=== PATIENT | female | born 1945 | race Caucasian/White ===

== ENCOUNTER → 2016-11-05 09:01 | Day surgery (SDC) | payer MEDICARE, BC ==
--- NOTE | 2016-10-31 09:46 | HP ---
PREOPERATIVE HISTORY AND PHYSICAL: DATE OF SURGERY/ADMISSION: 11/05/16 [facility] DATE OF OFFICE VISIT/ENCOUNTER: 10/30/16 ATTENDING SURGEON: Mónica Matias MD PROCEDURE: Left ring finger mass excision and contracture release. CHIEF COMPLAINT: Mass, left ring finger. HISTORY OF PRESENT ILLNESS: This is a 71-year-old female, who complains of pain and decreased motion in the left middle finger. This has been ongoing for 6 or 7 years. She does not recall any injury. The finger has become gradually more contracted. The pain can get quite significant if she bumps her finger. She denies any associated tingling or numbness. She denies any clicking or locking. An x-ray of the finger showed a bony lesion of the proximal phalanx and a followup MRI showed a mass between the flexor tendon and the PIP joint. Dr. Matias is recommending surgical intervention at this time in the form of a left ring finger mass excision and contracture release and the patient has consented to proceed. PAST MEDICAL HISTORY: 1. Depression. 2. Back pain. 3. Seasonal allergies. PAST SURGICAL HISTORY: 1. Hysterectomy. 2. Cholecystectomy. 3. Gastric bypass. 4. Right shoulder surgery. CURRENT MEDICATIONS: 1. Claritin 10 mg daily p.r.n. 2. Duloxetine HCl 30 mg daily. 3. Estrace 0.1 mg/g. 4. Gabapentin 300 mg daily. 5. Ibuprofen 600 mg 1 tab t.i.d. p.r.n. 6. Montelukast sodium 10 mg. 7. Tums [id number] daily. ALLERGIES: 1. SULFA ANTIBIOTICS cause anaphylaxis reaction. 2. CODEINE causes a painful cough. FAMILY MEDICAL HISTORY: Cardiac disease. SOCIAL HISTORY: The patient is retired. She is a former smoker. She quit 14 years ago. Prior to that she smoked for 20 years up to 2 packs per day. She denies recreational drug use. She denies alcohol use. REVIEW OF SYSTEMS: General: Negative for fevers, chills, or night sweats. No known anesthesia problems. HEENT: Negative for headache, lightheadedness, or syncopal episodes. Integumentary: Negative for abrasions, lesions, or open wounds. Cardiothoracic: Negative for chest pain, palpitations, or edema. Negative for hypertension. Pulmonary: Negative for shortness of breath with exertion, chronic cough, or COPD. GI: Negative for nausea, vomiting, diarrhea , constipation, or GERD. : Negative for nocturia, urinary frequency, urgency , history of UTIs, or kidney problems. Musculoskeletal: Positive for current complaint and positive for intermittent back pain. Neurological: Positive for depression. Negative for paresthesias, numbness, history of seizure, stroke, or epilepsy. Endocrine: Negative for diabetes or thyroid issues. Hematologic : Negative for easy bruising, anemia, excessive bleeding, or history of DVT. Infectious Disease: Negative for history of MRSA, hepatitis C, or HIV. PHYSICAL EXAMINATION GENERAL: A well-developed, well-nourished 71-year-old female, in no acute distress. VITAL SIGNS: Height 5 feet 2 inches, weight 175 pounds, pulse 64, and blood pressure 150/76. HEENT: Normocephalic, atraumatic. Pupils are equal, round, and reactive to light and accommodation. Extraocular movements are intact. NECK: Supple. No palpable lymph nodes. Throat is clear. PULMONARY: Lungs are clear to auscultation bilaterally. No wheezes, rales, or rhonchi. CARDIOTHORACIC: Regular rate and rhythm. S1, S2. No murmurs, rubs, or gallops. No edema. ABDOMEN: Positive bowel sounds. Soft and nontender. MUSCULOSKELETAL: On exam of the left ring finger, there is an approximately 45 degree contracture of the PIP joint. The patient cannot close into a full fist. Sensation is intact to light touch. Skin is intact. Neurovascular function is intact. There is a tender palpable mass just proximal to the PIP joint on the left ring finger. NEUROLOGICAL: Alert and oriented x3. Cranial nerves II through XII are intact. Sensation is intact to light touch. DIAGNOSTIC STUDIES/LAB DATA: X-rays of the left finger show bony lesion at the proximal phalanx. The PIP joint is intact. There is no sign of arthritis. MRI of the left ring finger shows a mass between the flexor tendon and the PIP joint. IMPRESSION: Mass, left right finger. PLAN/RECOMMENDATIONS: The patient is scheduled to undergo a left ring finger mass excision and contracture release with Dr. Matias. She will return to the office in 10 to 14 days postop for a followup and suture removal. A prescription for [place] was e-scribed to the patient's pharmacy for postoperative pain management. CONI BUTLER [id number]/[facility] #: [id number] SAYRA
[~2016-11-05 09:01] MED LIST: Acetaminophen TAB* 325 MG PO PRN; Buffered Lidocaine 1% SYRIN* 3 ML/SYR SYRINGE INTRADERM ONE; DiMENhydriNATE IV* 50 MG/ML VIAL IV PUSH PRN; Famotidine IV* 10 MG/ML 2 ML (20 mg) ONE; Ketorolac INJ* 30 MG/ML 1 ML VIAL ONE; Lidocaine 1% INJ* 10 MG/ML 30 ML SDV ONE; Lidocaine 2% PF* 5 ML VIAL ONE; Midazolam* 1 MG/ML 2 ML VIAL (2 MG) ONE; Ondansetron INJ* 2 MG/ML VIAL IV PRN; PROCHLORPERAZINE INJ 5 MG/ML 2 ML VIAL IV PRN; Propofol* 10 MG/ML 20 ML BTL IV PUSH ONE; fentaNYL* 50 MCG/ML 2 ML VIAL (100 MCG VIAL) ONE
[2016-11-05 12:43] VITALS: BP 151/68
--- NOTE | 2016-11-05 23:32 | OP ---
DATE OF OPERATION: 11/05/16 [facility] DATE OF : 45 SURGEON: Dr. Matias RESIDENTIAL NURSE: CONI Hendricks ANESTHESIOLOGIST: Dr. Tijerina ANESTHESIA: Local MAC. PRE-OP DIAGNOSIS: Left long finger mass and PIP contracture. POST-OP DIAGNOSIS: Left long finger mass and PIP contracture. OPERATIVE PROCEDURE: Left long finger mass and PIP contracture release. ESTIMATED BLOOD LOSS: Zero. TOURNIQUET TIME: About 15 minutes. INDICATIONS: Bhavna is a 71-year-old woman who has an enlarging mass at the PIP flexion crease of her left long finger. She has about a 40-degree flexion contracture as well. MRI shows the mass has caused impression on the bone, but has not invaded into the bone. She presents for mass removal and contracture release. DESCRIPTION OF PROCEDURE: The patient was brought to the operating room, was given a sedation anesthetic and a digital block with 10 cc of 1% plain lidocaine. The skin of her left hand and forearm were prepped and draped in the usual sterile fashion. The hand and forearm were exsanguinated and the tourniquet elevated to 250 mmHg. A Chantal incision was made on the flexor surface of the left long finger. We elevated the flaps and the digital neurovascular bundles were retracted. The flexor tendon sheath was opened at the A3 pawel and then the mass, which is a very fibrous firm mass measuring 1.5 x [address] from the proximal phalanx and sent for pathology. The finger was then manipulated and we are able to gain full extension of the PIP joint and full flexion by breaking the adhesions. The wound was irrigated and the skin edges were reapproximated with 4-0 nylon suture. The wound was dressed with Xeroform, 4x4, Webril, and aluminum foam splint holding the finger in full extension. The patient tolerated the procedure well and was brought to the recovery room in good condition. [id number]/[facility] #: [id number] [facility]April
== END | disposition home or self-care (01) ==
LOC: OREAST 09:01
PROVIDERS: ATTEND Orthopaedic Surgery
DX: M65.842 Other synovitis and tenosynovitis, left hand (principal); M20.092 Other deformity of left finger(s); J45.909 Unspecified asthma, uncomplicated; Z88.2 Allergy status to sulfonamides; Z88.5 Allergy status to narcotic agent; D64.9 Anemia, unspecified; F32.9 Major depressive disorder, single episode, unspecified; Z87.891 Personal history of nicotine dependence
CPT/HCPCS: 88305; J1885; J2001; J2250; J2704; J3010